=== PATIENT | male | born 1955 | race Caucasian/White ===

== ENCOUNTER 2016-12-28 18:07 | Emergency (ER) | payer BC ==
[2016-12-28] MEDS ORDERED: Ondansetron INJ* 2 MG/ML VIAL IV ONE (19:20)
[2016-12-28] MEDS ORDERED: NS 0.9% 1000 ML* 2,000 ML IV ONE (19:20)
[2016-12-28] MEDS ORDERED: Ciprofloxacin 400MG IVPREMIX(* 400 MG/200 ML BAG IVPB ONE (19:27)
[2016-12-28] MEDS ORDERED: metroNIDAZOLE IV 500 MG/100ML* 500 MG/100 ML BAG IVPB ONE (19:27)
[2016-12-28 19:40] LABS: Hematocrit 51 % (42-52); Hemoglobin 16.7 g/dl (14.0-18.0); Mean Corpuscular HGB Conc 33 g/dl (31-36); Mean Corpuscular Hemoglobin 29 pg (27-31); Mean Corpuscular Volume 87 fL (80-94); Mean Platelet Volume 8 um3 (7.4-10.4); Red Blood Count 5.87 10^6/ul (4.0-5.4); Red Cell Distribution Width 15 % (10.5-15)
[2016-12-28 19:46] LABS: Urine Bacteria Absent (Absent); Urine Bilirubin Negative (Negative); Urine Glucose Negative (Negative); Urine Nitrite Negative (Negative)
[2016-12-28 20:02] LABS: Albumin 4.6 g/dL (3.2-5.2); BUN/Creatinine Ratio 12.9 (8-20); C Reactive Protein 135.42 mg/L (< 5.00); Calcium 9.9 mg/dL (8.6-10.3); EGFR African American 55.2 (>60); EGFR Non-African American 42.9 (>60); Globulin 3.7 g/dL (2-4); Potassium 4.1 mmol/L (3.5-5.0); Total Bilirubin 1.1 mg/dL (0.2-1.0); Total Protein 8.3 g/dL (6.4-8.9)
[2016-12-28] MEDS ORDERED: Iodixanol* (CONTRAST) 320 MG/ML 100 ML SDV IV ONE (20:13)
[2016-12-28] MEDS ORDERED: Acetaminophen TAB* 325 MG PO ONE (20:16)
--- NOTE | 2016-12-28 21:27 | ED ---
Oscar Meng SooYoung, scribed for Saeid Glover MD on 12/28/16 at 1921 . Abdominal Pain/Male - HPI Summary HPI Summary: A 61 y/o M presents to ED with c/o acute on chronic diffuse abd pain initial onset a few weeks ago. Pt seen by Dr. Thomas, who treated it as diverticulitis with Cipro. Pt states he felt better but is now feeling worse. Associated sx: fever. He notes not having eaten much in the past 4 days. - History of Current Complaint Chief Complaint: EDAbdPain Stated Complaint: ABD PAIN/SENT BY DR THOMAS Hx Obtained From: Patient, Other: - Spoke with Dr. Thomas at 1720 prior to seeing pt Onset/Duration: Lasting Weeks, Still Present Severity Currently: Moderate Pain Intensity: 4 Pain Scale Used: 0-10 Numeric Location: Suprapubic Associated Signs And Symptoms: Positive: Fever - Allergies/Home Medications Allergies/Adverse Reactions: Allergies Allergy/AdvReac Type Severity Reaction Status Date / Time Acetaminophen [From Vicodin] Allergy B/P DROPS, Verified 12/28/16 18:11 AND DIZZINESS Codeine Allergy BP DROPPED Verified 12/28/16 18:11 AND DIZZINESS Hydrocodone Allergy BP DROPPED Verified 12/28/16 18:11 AND DIZZINESS Morphine Allergy CAUSES Verified 12/28/16 18:11 HEART TO STOP Penicillins Allergy HIVES & Verified 12/28/16 18:11 STOPPED BREATHING PMH/Surg Hx/FS Hx/Imm Hx Previously Healthy: No Endocrine/Hematology History: Reports: Hx Anticoagulant Therapy - low dose ASA, Hx Diabetes - TYPE 2 CONTROL WITH MEDS Denies: Hx Thyroid Disease Cardiovascular History: Reports: Hx Angina - 2004, Hx Coronary Artery Disease - CHOLESTEROL CONTROL WITH MEDS, Hx Hypercholesterolemia - HLD, Other Cardiovascular Problems/Disorders - CARDIAC CATHETERIZATION 2004, NO STENT Denies: Hx Hypertension, Hx Myocardial Infarction, Hx Pacemaker/ICD, Hx Valvular Heart Disease Respiratory History: Reports: Hx Sleep Apnea - BIPAP, Other Respiratory Problems /Disorders - HX OF PNEUMONIA 2000 Denies: Hx Asthma, Hx Chronic Obstructive Pulmonary Disease (COPD) GI History: Reports: Hx Gastroesophageal Reflux Disease - CONTROL WITH MEDS Denies: Hx Ulcer History: Reports: Hx Kidney Stones - BILATERAL, CURRENTLY ON THE LEFT Musculoskeletal History: Reports: Hx Arthritis - cervical Sensory History: Reports: Hx Contacts or Glasses - GLASSES Denies: Hx Hearing Aid Opthamlomology History: Reports: Hx Contacts or Glasses - GLASSES Neurological History: Reports: Hx Headaches, Other Neuro Impairments/Disorders - HX OF VERTIGO 3-4 YEARS AGO, NO PROBLEMS SINCE Psychiatric History: Denies: Hx Panic Disorder - Surgical History Surgery Procedure, Year, and Place: MYRINGOTOMY WITH BILATERAL TUBE INSERTION, MANY YEARS AGO. 1998 CYSTOSCOPY WITH RIGHT STENT INSERTION, [facility] [place]. 2004 CARDIAC CATHERIZATION, [facility] [place]. 2004 UMBILICAL HERNIA REPAIR, [facility] [place]. LAPAROSCOPIC HONORIO FUNDOPLICATION, [facility] [place]. 2011 REVISION OF HONORIO FUNDOPLICATION, [facility] [place]. KIDNEY STONE - LITHROTRIPSY, [facility] [place] Hx Anesthesia Reactions: Yes - NAUSEA/VOMITING X 1 Infectious Disease History: No Infectious Disease History: Reports: Hx Hepatitis - HX OF Denies: Hx Clostridium Difficile, Hx Human Immunodeficiency Virus (HIV), Hx of Known/Suspected MRSA, Hx Shingles, Hx Tuberculosis, Traveled Outside the in Last 30 Days - Family History Known Family History: Positive: Cardiac Disease - CAD - Social History Occupation: Retired Lives: With Family Alcohol Use: None Hx Substance Use: No Substance Use Type: Reports: None Hx Tobacco Use: Yes Smoking Status (MU): Former Smoker Type: Cigarettes Amount Used/How Often: 1 PPD FOR 5-10 YEARS Length of Time of Smoking/Using Tobacco: 8 years Have You Smoked in the Last Year: No Review of Systems Positive: Fever Positive: Abdominal Pain All Other Systems Reviewed And Are Negative: Yes Physical Exam - Summary Physical Exam Summary: Satya: no pain distress, MILDLY ILL APPEARING Skin: warm, skin color reflects adequate perfusion, dry Head/Face: nml head/face inspection Eyes: EOMI, YING ENT: ORAL MUCOSA DRY Neck: supple, non-tender Resp: CTA, breath sounds present Cardio: TACHY Abd: SOFT, TENDERNESS AT L ABD Bowel: HYPOACTIVE BOWEL SOUNDS PRESENT Musc: nml, strength/ROM intact Neuro: nml, sensory/motor intact, A&O x 3 Psych: affect/mood appropriate Triage Information Reviewed: Yes Vital Signs On Initial Exam: Initial Vitals Temp Pulse Resp BP Pulse Ox 101.5 F 123 20 152/87 95 12/28/16 18:11 12/28/16 18:11 12/28/16 18:11 12/28/16 18:11 12/28/16 18:11 Vital Signs Reviewed: Yes Diagnostics - Vital Signs Vital Signs Temp Pulse Resp BP Pulse Ox 12/28/16 18:11 101.5 F 123 20 152/87 95 - Laboratory Lab Results: Lab Results 12/28/16 12/28/16 12/28/16 Range/Units 19:25 19:25 19:25 WBC 10.0 (3.5-10.8) 10^3/ul RBC 5.87 H (4.0-5.4) 10^6/ul Hgb 16.7 (14.0-18.0) g/dl Hct 51 (42-52) % MCV 87 (80-94) fL MCH 29 (27-31) pg MCHC 33 (31-36) g/dl RDW 15 (10.5-15) % Plt Count 232 (150-450) 10^3/ul MPV 8 (7.4-10.4) um3 Neut % (Auto) 85.9 H (38-83) % Lymph % (Auto) 6.0 L (25-47) % Canyon % (Auto) 7.6 (1-9) % Eos % (Auto) 0.2 (0-6) % Baso % (Auto) 0.3 (0-2) % Absolute Neuts (auto) 8.6 H (1.5-7.7) 10^3/ul Absolute Lymphs (auto) 0.6 L (1.0-4.8) 10^3/ul Absolute Monos (auto) 0.8 (0-0.8) 10^3/ul Absolute Eos (auto) 0 (0-0.6) 10^3/ul Absolute Basos (auto) 0 (0-0.2) 10^3/ul Absolute Nucleated RBC 0 10^3/ul Nucleated RBC % 0 INR (Anticoag Therapy) 1.04 (0.89-1.11) APTT 29.4 (26.0-36.3) seconds Sodium 133 (133-145) mmol/L Potassium 4.1 (3.5-5.0) mmol/L Chloride 97 L (101-111) mmol/L Carbon Dioxide 24 (22-32) mmol/L Anion Gap 12 H (2-11) mmol/L BUN 21 (6-24) mg/dL Creatinine 1.63 H (0.67-1.17) mg/dL Est GFR ( Amer) 55.2 (>60) Est GFR (Non-Af Amer) 42.9 (>60) BUN/Creatinine Ratio 12.9 (8-20) Glucose 179 H (70-100) mg/dL Lactic Acid (0.5-2.0) mmol/L Calcium 9.9 (8.6-10.3) mg/dL Total Bilirubin 1.10 H (0.2-1.0) mg/dL AST 25 (13-39) U/L ALT 38 (7-52) U/L Alkaline Phosphatase 68 (34-104) U/L C-Reactive Protein 135.42 H (< 5.00) mg/L Total Protein 8.3 (6.4-8.9) g/dL Albumin 4.6 (3.2-5.2) g/dL Globulin 3.7 (2-4) g/dL Albumin/Globulin Ratio 1.2 (1-3) Lipase 28 (11.0-82.0) U/L Urine Color Urine Appearance Urine pH (5-9) Ur Specific Drybranch (1.010-1.030) Urine Protein (Negative) Urine Ketones (Negative) Urine Blood (Negative) Urine Nitrate (Negative) Urine Bilirubin (Negative) Urine Urobilinogen (Negative) Ur Leukocyte Esterase (Negative) Urine WBC (Auto) (Absent) Urine RBC (Auto) (Absent) Urine Bacteria (Absent) Urine Glucose (Negative) 12/28/16 12/28/16 Range/Units 19:25 19:25 WBC (3.5-10.8) 10^3/ul RBC (4.0-5.4) 10^6/ul Hgb (14.0-18.0) g/dl Hct (42-52) % MCV (80-94) fL MCH (27-31) pg MCHC (31-36) g/dl RDW (10.5-15) % Plt Count (150-450) 10^3/ul MPV (7.4-10.4) um3 Neut % (Auto) (38-83) % Lymph % (Auto) (25-47) % Canyon % (Auto) (1-9) % Eos % (Auto) (0-6) % Baso % (Auto) (0-2) % Absolute Neuts (auto) (1.5-7.7) 10^3/ul Absolute Lymphs (auto) (1.0-4.8) 10^3/ul Absolute Monos (auto) (0-0.8) 10^3/ul Absolute Eos (auto) (0-0.6) 10^3/ul Absolute Basos (auto) (0-0.2) 10^3/ul Absolute Nucleated RBC 10^3/ul Nucleated RBC % INR (Anticoag Therapy) (0.89-1.11) APTT (26.0-36.3) seconds Sodium (133-145) mmol/L Potassium (3.5-5.0) mmol/L Chloride (101-111) mmol/L Carbon Dioxide (22-32) mmol/L Anion Gap (2-11) mmol/L BUN (6-24) mg/dL Creatinine (0.67-1.17) mg/dL Est GFR ( Amer) (>60) Est GFR (Non-Af Amer) (>60) BUN/Creatinine Ratio (8-20) Glucose (70-100) mg/dL Lactic Acid 2.9 H* (0.5-2.0) mmol/L Calcium (8.6-10.3) mg/dL Total Bilirubin (0.2-1.0) mg/dL AST (13-39) U/L ALT (7-52) U/L Alkaline Phosphatase (34-104) U/L C-Reactive Protein (< 5.00) mg/L Total Protein (6.4-8.9) g/dL Albumin (3.2-5.2) g/dL Globulin (2-4) g/dL Albumin/Globulin Ratio (1-3) Lipase (11.0-82.0) U/L Urine Color Yellow Urine Appearance Clear Urine pH 6.0 (5-9) Ur Specific Drybranch 1.014 (1.010-1.030) Urine Protein Negative (Negative) Urine Ketones Negative (Negative) Urine Blood 1+ H (Negative) Urine Nitrate Negative (Negative) Urine Bilirubin Negative (Negative) Urine Urobilinogen Negative (Negative) Ur Leukocyte Esterase Negative (Negative) Urine WBC (Auto) Absent (Absent) Urine RBC (Auto) 1+(3-5/hpf) H (Absent) Urine Bacteria Absent (Absent) Urine Glucose Negative (Negative) Result Diagrams: 12/28/16 19:25 12/28/16 19:25 Lab Statement: Any lab studies that have been ordered have been reviewed, and results considered in the medical decision making process. Abdominal Pain Fem Course/Dx - Course Course Of Treatment: At 1720, spoke with Dr. Thomas, Financial Coordinator prior to seeing pt. Assessment/Plan: DISPOSITION PENDING AT SHIFT CHANGE. - Diagnoses Provider Diagnoses: Abdominal pain, Fever Discharge - Discharge Plan Condition: Stable Disposition: OTHER Discharge Disposition Comment: N Referrals: Shayne Thomas MD [Primary Care Provider] - The documentation as recorded by the Oscar brownlee SooYoung accurately reflects the service I personally performed and the decisions made by me, Saeid Glover MD.
--- NOTE | 2016-12-28 22:56 | RAD ---
Indication: Left-sided abdominal pain, diverticulitis. Contrast: Administered 124.0 ml of VISAPAQUE 320 mgi/ml CT of the abdomen and pelvis was performed after oral and IV contrast administration. Coronal and sagittal reconstructed images were obtained. The lung bases demonstrate no pleural fluid, nodules or masses. Heart is of normal size without evidence of pericardial effusion. Patient appears to have had a Eva fundoplication. The liver is normal in size. It is diffusely decreased in density consistent with hepatic steatosis. The gallbladder demonstrates no calcified gallstones. No pericholecystic fluid or wall thickening is noted. The pancreas demonstrates no mass or pancreatic ductal dilatation. The common duct is not dilated. The spleen is normal in size. No adrenal masses are noted. The kidneys demonstrate symmetric nephrograms without focal lesions. No hydronephrosis is noted. The common duct is not dilated. No dilated loops of bowel are noted. The colon is filled with stool. No retroperitoneal adenopathy is noted. Aorta and inferior vena cava are unremarkable. CT of the pelvis demonstrates diverticulosis without evidence of diverticulitis. No hernias are noted. The urinary bladder is unremarkable. IMPRESSION: DIVERTICULOSIS WITHOUT DEFINITE EVIDENCE OF DIVERTICULITIS. HEPATIC STEATOSIS. PATIENT IS STATUS POST EVA FUNDOPLICATION. NO OBSTRUCTIVE UROPATHY IS NOTED.
--- NOTE | 2016-12-28 23:58 | ED ---
benji Meng Timothy, balaibed for Simón Campa on 12/28/16 at 2357 . Progress - Progress Note Progress Note: Ventura Ross is a 61 yo male presenting to [facility] with abdominal pain after being treated for diverticulitis. CT A/P: IMPRESSION: DIVERTICULOSIS WITHOUT DEFINITE EVIDENCE OF DIVERTICULITIS. HEPATIC STEATOSIS. PATIENT IS STATUS POST EVA FUNDOPLICATION. NO OBSTRUCTIVE UROPATHY IS NOTED. Course/Dx - Course Course Of Treatment: Ventura Ross is a 61 yo male presenting to [facility] with abdominal pain S/P Tx for diverticulitis. After negative CT A/P and discussion with Dr. Serrato, he will be admitted for his abd pain. - Diagnoses Provider Diagnoses: Abdominal pain, Fever - Provider Notifications Discussed Care Of Patient With: 2300 - Dr. Serrato (hospitalist) - discussed Pt condition, agrees to admit. Instructed by Provider To: Admit As Inpatient The documentation as recorded by the benji brownlee Timothy accurately reflects the service I personally performed and the decisions made by , Simón Campa.
[2016-12-29] MEDS ORDERED: Oseltamivir CAP* 75 MG PO ONE (00:17)
[2016-12-29 00:40] VITALS: BP 119/68
--- NOTE | 2016-12-29 01:51 | ED ---
benji Meng Timothy, vernon for Simón Campa on 12/29/16 at 0022 . Progress - Progress Note Progress Note: Ventura Ross is a 61 yo male presenting to [facility] with abdominal pain after being treated for diverticulitis. After further clinical examination, discussion with Dr. Serrato, positive influenza test, he will be discharged home. Re-Evaluation - Re-Evaluation First Eval Re-Evaluation Time: 00:20 Change: Unchanged Comment: Pt is agreeable to current course of Tx. Course/Dx - Course Course Of Treatment: Ventura Ross is a 61 yo male presenting to [facility] with abdominal pain S/P Tx for diverticulitis. After negative CT A/P, positive rapid influenza test, and discussion with Dr. Serrato, he will be discharged with influenza and appropriate instructions. - Diagnoses Provider Diagnoses: Influenza A - Provider Notifications Discussed Care Of Patient With: 0021 - Dr. Serrato (hospitalist) - discussed Pt condition, and positive flu test, recommends discharge. Instructed by Provider To: Admit As Inpatient The documentation as recorded by the benji brownlee Timothy accurately reflects the service I personally performed and the decisions made by , Simón Campa.
== END 2016-12-29 00:40 | disposition home or self-care (01) ==
LOC: ED 18:07
DX: J09.X2 Influenza due to identified novel influenza A virus with other respiratory manifestations (principal); R10.9 Unspecified abdominal pain; Z88.5 Allergy status to narcotic agent; Z88.0 Allergy status to penicillin; K57.90 Diverticulosis of intestine, part unspecified, without perforation or abscess without bleeding; E11.9 Type 2 diabetes mellitus without complications; Z79.82 Long term (current) use of aspirin; I25.10 Atherosclerotic heart disease of native coronary artery without angina pectoris; E78.00 Pure hypercholesterolemia, unspecified; G47.30 Sleep apnea, unspecified; K21.9 Gastro-esophageal reflux disease without esophagitis; Z87.442 Personal history of urinary calculi; K75.9 Inflammatory liver disease, unspecified; Z87.891 Personal history of nicotine dependence
CPT/HCPCS: 36415; 74177; 80053; 81003; 81015; 83605; 83690; 85025; 85610; 85730; 86140; 87502; 96360; 96374; 96375; 99283; A9270-GY; J0744; J2405; J3490; Q9967

== ENCOUNTER → 2017-02-11 06:41 | Day surgery (SDC) | payer BC ==
[~2017-02-11 06:41] MED LIST: Artificial Tear OPHTH.OINT* 3.5 GM ONE; BSS OPTH.SOL* BTL ONE; Bacitracin OINTMENT* 1 TUBE ONE; Buffered Lidocaine 1% SYRIN* 3 ML/SYR SYRINGE INTRADERM ONE; Lidocain 1% EPI 1:100,000 * 30 ML MDV ONE; Methylene Blue 1%* 10 ML VIAL ONE; Midazolam* 1 MG/ML 2 ML VIAL (2 MG) ONE; Ondansetron INJ* 2 MG/ML VIAL IV PRN; Propofol* 10 MG/ML 20 ML BTL IV PUSH ONE; fentaNYL* 50 MCG/ML 2 ML VIAL (100 MCG VIAL) ONE
[2017-02-11 08:32] VITALS: BP 109/65
== END | disposition home or self-care (01) ==
LOC: OREAST 06:41
PROVIDERS: ATTEND Plastic Surgery
DX: D23.11 Other benign neoplasm of skin of right eyelid, including canthus (principal); G47.33 Obstructive sleep apnea (adult) (pediatric); Z87.891 Personal history of nicotine dependence; E78.5 Hyperlipidemia, unspecified; E11.8 Type 2 diabetes mellitus with unspecified complications; Z79.4 Long term (current) use of insulin
CPT/HCPCS: 88305; A9270-GY; J2250; J2704; J3010

== ENCOUNTER 2020-11-19 11:33 | Observation (INO) ==
[2020-11-19 13:03] LABS: ABS Lymphocytes 1.7 10^3/ul (1.0-4.8); ABS Monocytes 0.6 10^3/ul (0-0.8); Eosinophil % 0.7 %; Hematocrit 46 % (42-52); Hemoglobin 16.1 g/dL (14.0-18.0); Lymphocyte % 26.3 %; Mean Corpuscular HGB Conc 35 g/dL (31-36); Mean Corpuscular Hemoglobin 32 pg (27-31); Mean Corpuscular Volume 91 fL (80-94); Mean Platelet Volume 8.4 fL (7.4-10.4); Platelet Count 220 10^3/uL (150-450); Red Cell Distribution Width 14 % (10-15); White Blood Count 6.4 10^3/uL (3.5-10.8)
[2020-11-19 13:05] LABS: INR 0.98 (0.82-1.09)
[2020-11-19 13:45] LABS: Albumin 4.6 g/dL (3.2-5.2); Albumin/Globulin Ratio 1.5 (1-3); EGFR African American 84.3 (>60); EGFR Non-African American 69.7 (>60); Magnesium 1.9 mg/dL (1.9-2.7); Potassium 4.3 mmol/L (3.5-5.0); Total Bilirubin 0.6 mg/dL (0.2-1.0); Total Protein 7.6 g/dL (6.4-8.9)
[2020-11-19] MEDS ORDERED: Dextrose 50% Syringe 50 ml 25 GM/50 ML SYRINGE IV PUSH PRN (14:23)
[2020-11-19] MEDS ORDERED: Nitro 2% OINT (Nitroglycerin) 1 INCH/PAK TOPICAL ONE (14:42)
[2020-11-19] MEDS ORDERED: fentaNYL 100 mcg/2 ml 50 MCG/ML VIAL IV SLOW PU ONE (15:12)
[2020-11-19 16:13] LABS: TSH Ultra Thyroid Stim Horm 1.83 mcIU/mL (0.34-5.60)
[2020-11-19] MEDS ORDERED: Heparin DRIP 25,000 UNITS BAG 25,000 UNITS/500 ML BAG IV SCH (17:45)
[2020-11-19 19:18] LABS: Activated Partial Thrombo Time 30.5 seconds (26.0-38.0)
[2020-11-19] MEDS: Heparin 5000 UNITS/ML 1 mL VIAL IV SCH (19:35)
[2020-11-19] MEDS ORDERED: Enoxaparin 40 MG/0.4 ML SYR SUBCUT SCH (21:00)
[2020-11-20 06:03] LABS: ABS Basophils 0.1 10^3/ul (0-0.2); ABS Eosinophils 0.1 10^3/ul (0-0.6); ABS Lymphocytes 2.9 10^3/ul (1.0-4.8); ABS Monocytes 0.7 10^3/ul (0-0.8); ABS Neutrophils 3.4 10^3/ul (1.5-7.7); Hematocrit 43 % (42-52); Hemoglobin 14.9 g/dL (14.0-18.0); Lymphocyte % 40.6 %; Mean Corpuscular HGB Conc 35 g/dL (31-36); Mean Corpuscular Hemoglobin 32 pg (27-31); Mean Corpuscular Volume 91 fL (80-94); Mean Platelet Volume 8.3 fL (7.4-10.4); Platelet Count 199 10^3/uL (150-450); Red Blood Count 4.68 10^6 /uL (4.18-5.48); Red Cell Distribution Width 14 % (10-15); White Blood Count 7.1 10^3/uL (3.5-10.8)
[2020-11-20 06:28] LABS: BUN/Creatinine Ratio 18.6 (8-20); Calcium 9.2 mg/dL (8.6-10.3); EGFR African American 88.1 (>60); EGFR Non-African American 72.8 (>60); Potassium 3.8 mmol/L (3.5-5.0)
[2020-11-20 07:11] LABS: INR 1.07 (0.82-1.09)
[2020-11-20] MEDS ORDERED: Coenzyme Q10 CAP (NF) 100 MG PO SCH (09:00)
[2020-11-20] MEDS ORDERED: Aspirin EC 81 mg TAB.EC (enteric coated) PO SCH (09:00)
[2020-11-20] MEDS ORDERED: Vitamin THERAPEUTIC TAB PO SCH (09:00)
[2020-11-20] MEDS: Heparin 5000 UNITS/ML 1 mL VIAL IV SCH (09:23)
[2020-11-20] MEDS ORDERED: Al Hydrox/Mg Hydrox/Simet LIQ 30 ML UDC PO PRN (09:53)
[2020-11-20] MEDS ORDERED: Al Hydrox/Mg Hydrox/Simet LIQ 30 ML UDC ONE (10:11)
[2020-11-20 16:25] VITALS: BP 116/60
== END 2020-11-20 17:15 | disposition home or self-care (01) ==
LOC: ED 11:33 → MED 11:33 → MEDTELE 11-20 06:09
PROVIDERS: ADMIT Internal Medicine; ATTEND Internal Medicine